=== PATIENT | male | born 1980 | race Two or more races ===

== ENCOUNTER → 2025-01-03 | Outpatient (CLI) | payer MEDICARE, SELFPAY ==
--- NOTE | 2025-01-03 14:35 | XR_ITS ---
Examination: Fingers, right hand fourth digit 3 views Technique: AP, oblique, lateral views right hand fourth digit 3 views. Exam date and time: January 03, 2025 1549 hours INDICATIONS: Nonhealing wound right fourth digit noticed beginning 3 months ago FINDINGS: Soft tissue swelling about the third digit Periosteal new bone involving the base of the middle phalanx fourth digit and distal aspect proximal phalanx fourth digit with early cortical erosions No fracture No dislocation IMPRESSION: Early osteoarthritis fourth digit as above
== END | disposition home or self-care (01) ==
PROVIDERS: Referring Provider Nurse Practitioner Family; Visit Provider Nurse Practitioner Family
DX: M19.041 Primary osteoarthritis, right hand (principal)
CPT/HCPCS: 73140

== ENCOUNTER → 2025-01-15 | Outpatient (CLI) | payer MEDICARE, MEDICAID, SELFPAY | END | disposition home or self-care (01) | PROVIDERS: PCP Nurse Practitioner Family; Referring Provider Nurse Practitioner Family; Visit Provider Student in an Organized Health Care Education/Training Program | DX: E10.621 Type 1 diabetes mellitus with foot ulcer (principal); L97.522 Non-pressure chronic ulcer of other part of left foot with fat layer exposed; E10.69 Type 1 diabetes mellitus with other specified complication; Z79.84 Long term (current) use of oral hypoglycemic drugs; I12.0 Hypertensive chronic kidney disease with stage 5 chronic kidney disease or end stage renal disease | CPT/HCPCS: 99214; A9270; G0463 ==

== ENCOUNTER → 2025-01-29 | Outpatient (CLI) | payer MEDICARE, SELFPAY | END | disposition home or self-care (01) | PROVIDERS: Visit Provider Student in an Organized Health Care Education/Training Program | DX: E10.621 Type 1 diabetes mellitus with foot ulcer (principal); L97.522 Non-pressure chronic ulcer of other part of left foot with fat layer exposed; E10.69 Type 1 diabetes mellitus with other specified complication; Z79.84 Long term (current) use of oral hypoglycemic drugs; I12.0 Hypertensive chronic kidney disease with stage 5 chronic kidney disease or end stage renal disease | CPT/HCPCS: 99213; A9270; G0463 ==

== ENCOUNTER → 2025-02-05 | Outpatient (CLI) | payer MEDICARE, SELFPAY | END | disposition home or self-care (01) | LOC: SWHD 08:05 | PROVIDERS: Visit Provider Student in an Organized Health Care Education/Training Program | DX: E10.621 Type 1 diabetes mellitus with foot ulcer (principal); L97.522 Non-pressure chronic ulcer of other part of left foot with fat layer exposed; E10.69 Type 1 diabetes mellitus with other specified complication; Z79.84 Long term (current) use of oral hypoglycemic drugs; I12.0 Hypertensive chronic kidney disease with stage 5 chronic kidney disease or end stage renal disease | CPT/HCPCS: 99213; G0463 ==

== ENCOUNTER → 2025-02-12 | Outpatient (CLI) | payer MEDICARE, MEDICAID, SELFPAY | END | disposition home or self-care (01) | PROVIDERS: Visit Provider Student in an Organized Health Care Education/Training Program | DX: E10.621 Type 1 diabetes mellitus with foot ulcer (principal); L98.492 Non-pressure chronic ulcer of skin of other sites with fat layer exposed; E10.69 Type 1 diabetes mellitus with other specified complication; Z79.84 Long term (current) use of oral hypoglycemic drugs; E10.40 Type 1 diabetes mellitus with diabetic neuropathy, unspecified; I12.0 Hypertensive chronic kidney disease with stage 5 chronic kidney disease or end stage renal disease; M86.8X4 Other osteomyelitis, hand; N18.6 End stage renal disease; R56.9 Unspecified convulsions; K52.9 Noninfective gastroenteritis and colitis, unspecified; L98.8 Other specified disorders of the skin and subcutaneous tissue | CPT/HCPCS: 99213; A9270; G0463 ==

== ENCOUNTER → 2025-02-26 | Outpatient (CLI) | payer MEDICARE, MEDICAID, SELFPAY | END | disposition home or self-care (01) | LOC: SWHD 08:10 | PROVIDERS: Visit Provider Student in an Organized Health Care Education/Training Program | DX: E10.621 Type 1 diabetes mellitus with foot ulcer (principal); L98.492 Non-pressure chronic ulcer of skin of other sites with fat layer exposed; E10.69 Type 1 diabetes mellitus with other specified complication; E10.40 Type 1 diabetes mellitus with diabetic neuropathy, unspecified; I12.0 Hypertensive chronic kidney disease with stage 5 chronic kidney disease or end stage renal disease; M86.8X4 Other osteomyelitis, hand; N18.6 End stage renal disease; K52.9 Noninfective gastroenteritis and colitis, unspecified; L98.8 Other specified disorders of the skin and subcutaneous tissue | CPT/HCPCS: 99213; A9270; G0463 ==

== ENCOUNTER → 2025-03-12 | Outpatient (CLI) | payer MEDICARE, MEDICAID, SELFPAY | END | disposition home or self-care (01) | LOC: SWHD 08:09 | PROVIDERS: Visit Provider Student in an Organized Health Care Education/Training Program | DX: E10.621 Type 1 diabetes mellitus with foot ulcer (principal); L98.492 Non-pressure chronic ulcer of skin of other sites with fat layer exposed; E10.69 Type 1 diabetes mellitus with other specified complication; E10.40 Type 1 diabetes mellitus with diabetic neuropathy, unspecified; I12.0 Hypertensive chronic kidney disease with stage 5 chronic kidney disease or end stage renal disease; N18.6 End stage renal disease; K52.9 Noninfective gastroenteritis and colitis, unspecified; L98.8 Other specified disorders of the skin and subcutaneous tissue; M86.8X4 Other osteomyelitis, hand; Z91.199 Patient's noncompliance with other medical treatment and regimen due to unspecified reason | CPT/HCPCS: 99213; G0463 ==

== ENCOUNTER → 2025-03-26 | Outpatient (CLI) | payer MEDICARE, MEDICAID, SELFPAY | END | disposition home or self-care (01) | PROVIDERS: PCP Nurse Practitioner Family; Referring Provider Nurse Practitioner Family; Visit Provider Student in an Organized Health Care Education/Training Program | DX: E10.621 Type 1 diabetes mellitus with foot ulcer (principal); L98.492 Non-pressure chronic ulcer of skin of other sites with fat layer exposed; E10.69 Type 1 diabetes mellitus with other specified complication; E10.40 Type 1 diabetes mellitus with diabetic neuropathy, unspecified; I12.0 Hypertensive chronic kidney disease with stage 5 chronic kidney disease or end stage renal disease; N18.6 End stage renal disease; K52.9 Noninfective gastroenteritis and colitis, unspecified; L98.8 Other specified disorders of the skin and subcutaneous tissue; M86.8X4 Other osteomyelitis, hand; Z91.199 Patient's noncompliance with other medical treatment and regimen due to unspecified reason | CPT/HCPCS: 97597 ==

== ENCOUNTER → 2025-04-16 | Outpatient (CLI) | payer MEDICARE, MEDICAID, SELFPAY | END | disposition home or self-care (01) | LOC: SWHD 08:08 | PROVIDERS: PCP Nurse Practitioner Family; Referring Provider Nurse Practitioner Family; Visit Provider Student in an Organized Health Care Education/Training Program | DX: E10.621 Type 1 diabetes mellitus with foot ulcer (principal); L98.492 Non-pressure chronic ulcer of skin of other sites with fat layer exposed; E10.69 Type 1 diabetes mellitus with other specified complication; E10.40 Type 1 diabetes mellitus with diabetic neuropathy, unspecified; I12.0 Hypertensive chronic kidney disease with stage 5 chronic kidney disease or end stage renal disease; N18.6 End stage renal disease; K52.9 Noninfective gastroenteritis and colitis, unspecified; L98.8 Other specified disorders of the skin and subcutaneous tissue; M86.8X4 Other osteomyelitis, hand; Z91.199 Patient's noncompliance with other medical treatment and regimen due to unspecified reason | CPT/HCPCS: 99212; G0463 ==